=== PATIENT | male | born 2000 | race Caucasian/White ===

== ENCOUNTER 2024-03-31 12:37 | Emergency (ER) | payer OTHER, SELFPAY ==
[2024-03-31 12:58] VITALS: BP 114/79
[2024-03-31 13:29] LABS: % Eosinophils 0.8 % (0-6); % Immature Granulocytes 0.3 % (0-0.5); % Lymphocytes 32.9 % (20.5-51.1); % Monocytes 8.7 % (1.7-9.3); % Neutrophils 57.3 % (42.2-75.2); Absolute Eosinophils 0.1 10^3/uL (0-0.7); Absolute Monocytes 0.5 10^3/uL (0.1-0.6); Absolute Neutrophils 3.4 10^3/uL (1.4-6.5); Hematocrit 43.5 % (39.0-52.0); Hemoglobin 15.7 g/dL (13.0-18.0); Mean Corp Hgb Conc. 36.1 g/dL (33.0-37.0); Mean Corpuscular Hgb 31.8 pg (27.0-31.0); Mean Corpuscular Volume 88.1 fL (80.0-94.0); Mean Platelet Volume 9.5 fL (7.4-10.4); Nucleated Red Blood Cells % 0 % (-); Platelet Count 272 10^3/uL (130-400); Red Blood Cell Count 4.94 10^6/uL (4.70-6.10); Red Cell Dist. Width 11.2 % (11.5-14.5)
[2024-03-31 13:37] LABS: ALT (SGPT) 36 U/L (0-50); AST (SGOT) 37 U/L (17-59); Alkaline Phosphatase 51 U/L (38-126); Blood Urea Nitrogen 11 mg/dl (9-20); Calcium 9.7 mg/dl (8.4-10.2); Carbon Dioxide 19 mmol/L (22-30); Chloride 100 mmol/L (98-107); Glucose 80 mg/dl (70-99); Potassium 3.7 mmol/L (3.5-5.1); Sodium 138 mmol/L (135-145); Total Bilirubin 0.9 mg/dl (0.2-1.3); eGFR > 60.00
[2024-03-31 14:08] VITALS: BMI 15.9
--- NOTE | 2024-03-31 15:21 | ED.GENMED ---
History of Present Illness
General
Chief Complaint: Abdominal Symptoms
Source: patient
Exam Limitations: none
Time Seen by Provider: 03/31/24 15:08
Travel History
Have you had any contact with someone who has COVID-19?: No
Do you have any symptoms of coronavirus? Fever > 100 degrees, chills, cough, shortness of breath, sore throat, loss of taste or smell, muscle aches, or headache?: No
History of Present Illness
History of Present Illness:
23-year-old born male transgender to female presents complaining of nausea and vomiting ongoing for over a week. She was diagnosed with influenza B about a week ago. She denies any current alcohol use. She states that she last used marijuana
before she got sick with influenza. No current fever. She has not moved her bowels. No significant abdominal pain pain or shortness of breath. No other complaints at this time
Phy Exam
Physical Exam
Physical Exam:
General: Well-appearing female no acute respiratory distress
HEENT: Normocephalic atraumatic mucosa moist neck
Heart: Regular rate and rhythm
Lungs: Clear no wheeze or rales abdomen: Soft nontender nondistended normal bowel sounds
Extremities: No cyanosis
Course
Orders/Labs/Results
Orders:
Orders
03/31/24 13:07
Complete Blood Count/With Diff Urgent
Comprehensive Metabolic Panel Urgent
Lipase Urgent
Comment: ADD ON
03/31/24 15:20
Add On- LAB Urgent
Tests Added?: lipase
0.9% Sodium Chloride 1000 ml [Nss] 1,000 ml IV BOLUS
Ondansetron Injectable [Zofran] 4 mg IV NOW STA
Abnormal Lab Results
03/31/24
13:07
MCH 31.8 H pg
(27.0-31.0)
RDW 11.2 L %
(11.5-14.5)
Carbon Dioxide 19 L mmol/L
(22-30)
03/31/24 13:07
03/31/24 13:07
Vital Signs
Initial and Last Documented VS:
Initial Vital Signs
Temp Pulse Resp BP Pulse Ox
99.5 F 130 16 114/79 98
03/31/24 12:58 03/31/24 12:58 03/31/24 12:58 03/31/24 12:58 03/31/24 12:58
Last Documented Vital Signs
Temp Pulse Resp BP Pulse Ox
99.5 F 70 18 107/65 99
03/31/24 12:58 03/31/24 17:03 03/31/24 17:03 03/31/24 17:03 03/31/24 17:03
MDM/Problems Addressed
Differential Diagnosis Includes:
Ongoing nausea. Relatively benign abdominal exam. Suspect viral illness. Question poss ulcer however she does not use NSAIDs regularly. Will check lipase. Labs reviewed otherwise demonstrating normal electrolyte functions. Will hydrate and
give Zofran. Considered imaging however not indicated at this time. No medical records to review from this hospital.
*Critical Care Note
Total Time (30-74mins, 75-104mins- exclusive of procedures): Not Applicable
Update Note
Update Note:
Patient reexamined after fluids she states the nausea is improved. She is tolerating oral fluids. Looks nontoxic upon reassessment. Suspect underlying viral cause of nausea. Recommended antiemetics at home with clear liquid diet and advance to
bland diet as tolerated. No indication for imaging currently. Stable for discharge
ED Attending Note
-
Portions of this chart may have been created with voice recognition software.� Occasional wrong word or��sound alike� substitutions may have occurred due to the inherent limitations of voice recognition software.
Discharge Plan
Departure
Patient Disposition: Home (Routine Discharge)
Date of Disposition: 03/31/24
Time of Disposition: 19:07
Patient with high blood pressure during this ER visit?: No
Discharge Problem:
Nausea
Instructions: Nausea and Vomiting, Adult (DC)
Prescriptions:
New
promethazine 25 mg tablet
25 mg PO QID PRN (Reason: nausea and vomiting) Qty: 10 0RF
Referrals:
NONE,* [Family Provider] -
Activity Restrictions/Additional Instructions:
Drink plenty clear liquids to start. Use nausea medicine if needed for nausea. Advance to bland diet as tolerated. Return if worse otherwise follow-up with your family doctor upon return home
Interventions
Interventions:
*Risk Screen - Suicide Last Done: 03/31/24 14:08
*General Assessment Last Done: 03/31/24 14:08
*Neglect/Abuse Screening Last Done: 03/31/24 14:08
*ED COVID-19 Vaccine History Last Done: 03/31/24 12:58
HK-Xxrdbs-Jvjpxiqszy Assessment Last Done: 03/31/24 14:08
Discharge Date and Time
Print Language: [place]
[2024-03-31 15:52] LABS: Lipase 51 U/L (23-300)
[2024-03-31] MEDS: NSS 1000 IV (16:59)
[2024-03-31] MEDS: ZOFRAN 4 MG IV (17:00)
[2024-03-31 17:03] VITALS: BP 107/65
[2024-03-31 20:40] VITALS: BP 101/71
== END 2024-03-31 20:41 | disposition home or self-care (01) ==
LOC: EMR 12:37
PROVIDERS: Emergency Medicine; EMERGENCY PHYSICIAN Student in an Organized Health Care Education/Training Program
DX: R11.2 Nausea with vomiting, unspecified (principal)
CPT/HCPCS: 99284; 96374; 96361; 80053; 83690; 85025